=== PATIENT | male | born 1995 | race Caucasian/White ===

== ENCOUNTER 2017-02-06 13:58 | Emergency (ER) | payer OTHER ==
[2017-02-06 14:04] VITALS: BP 133/73
--- NOTE | 2017-02-06 14:43 | EDM.PDOC ---
ED HPI GENERAL MEDICAL PROBLEM - General Chief Complaint: Lower Extremity Injury/Pain Stated Complaint: right foot Time Seen by Provider: 02/06/17 14:20 Source of Information: Reports: Patient History Limitations: Reports: No Limitations - History of Present Illness INITIAL COMMENTS - FREE TEXT/NARRATIVE: Patient is a 22-year-old who apparently was out and about yesterday when he kicked something at that time he did not have any pain but now complains some pain in the dorsal aspect of the right foot patient was unable to come in earlier because of pain did take a couple Aleve's which helped him now cave-in for evaluation and treatment Onset: Today Onset Date: 02/06/17 Duration: Hour(s): Location: Reports: Lower Extremity, Right (Right dorsal aspect of foot laterally ) Treatments RESPIRATORY EQUIPMENT ASSISTANT: Reports: Cold Therapy Right Feet Pain Score (Numeric/FACES): 9 - Related Data Allergies Allergy/AdvReac Type Severity Reaction Status Date / Time No Known Allergies Allergy Verified 02/06/17 14:04 Home Meds: Home Meds . [No Known Home Meds] 01/04/16 [History] Past Medical History - Infectious Disease History Infectious Disease History: Reports: Chicken Pox - Past Surgical History HEENT Surgical History: Reports: Other (See Below) Other HEENT Surgeries/Procedures: Eye surgery GI Surgical History: Reports: Appendectomy Social & Family History - Tobacco Use Smoking Status *Q: Current Every Day Smoker Years of Tobacco use: 4 Packs/Tins Daily: 0.5 - Alcohol Use Days Per Week of Alcohol Use: 1 Number of Drinks Per Day: 6 Total Drinks Per Week: 6 - Recreational Drug Use Recreational Drug Use: No Review of Systems - Review of Systems Review Of Systems: See Below Constitutional: Reports: No Symptoms Eyes: Reports: No Symptoms Ears: Reports: No Symptoms Nose: Reports: No Symptoms Mouth/Throat: Reports: No Symptoms Respiratory: Reports: No Symptoms Cardiovascular: Reports: No Symptoms GI/Abdominal: Reports: No Symptoms Genitourinary: Reports: No Symptoms Musculoskeletal: Reports: Foot Pain Skin: Reports: No Symptoms Neurological: Reports: No Symptoms Psychiatric: Reports: No Symptoms ED EXAM, GENERAL - Physical Exam Exam: See Below Exam Limited By: No Limitations General Appearance: Alert, WD/WN, No Apparent Distress Ears: Normal External Exam, Normal Canal, Hearing Grossly Normal, Normal TMs Nose: Normal Inspection, Normal Mucosa, No Blood Throat/Mouth: Normal Inspection Head: Atraumatic, Normocephalic Neck: Normal Inspection, Supple, Non-Tender, Full Range of Motion Respiratory/Chest: No Respiratory Distress, Lungs Clear, Normal Breath Sounds, No Accessory Muscle Use, Chest Non-Tender Cardiovascular: Normal Peripheral Pulses, Regular Rate, Rhythm, No Edema, No Gallop, No JVD, No Murmur, No Rub GI/Abdominal: Normal Bowel Sounds, Soft, Non-Tender, No Organomegaly, No Distention, No Abnormal Bruit, No Mass (Male) Exam: No Hernia, Normal Inspection, Normal Prostate, Circumcised Rectal (Males) Exam: Deferred Back Exam: Normal Inspection, Full Range of Motion, NT Extremities: Leg Pain (Right leg pain dorsal aspect limited range of motion) Neurological: Alert Course - Vital Signs Last Recorded V/S: Last Vital Signs Temp 98.7 F 02/06/17 13:59 Pulse 100 02/06/17 13:59 Resp 20 02/06/17 13:59 BP 133/73 02/06/17 13:59 Pulse Ox 100 02/06/17 13:59 - Orders/Labs/Meds Orders: Active Orders 24 hr Category Date Time Status Foot 2V Rt [CR] Stat Exams 02/06/17 14:09 Taken Departure - Departure Time of Disposition: 14:48 Disposition: Home, Self-Care 01 Condition: Fair Clinical Impression: Right foot sprain Clinical Impression: (Ruled Out): Closed nondisplaced fracture of fourth metatarsal bone of right foot - Discharge Information Instructions: Foot Sprain Forms: ED Department Discharge - My Orders Last 24 Hours: My Active Orders 02/06/17 14:09 Foot 2V Rt [CR] Stat - Assessment/Plan Last 24 Hours: My Active Orders 02/06/17 14:09 Foot 2V Rt [CR] Stat
== END 2017-02-06 15:09 | disposition home or self-care (01) ==
LOC: LL.ED 13:58
DX: S93.601A Unspecified sprain of right foot, initial encounter (principal); Z90.49 Acquired absence of other specified parts of digestive tract; F17.210 Nicotine dependence, cigarettes, uncomplicated; W22.8XXA Striking against or struck by other objects, initial encounter
CPT/HCPCS: 73620-RT; 99283

== ENCOUNTER 2018-10-25 18:36 | Emergency (ER) | payer SELFPAY ==
[2018-10-25 18:51] VITALS: BP 122/62
[2018-10-25] MEDS: Diphtheria,Pertussis(Acell),Tetanus Vaccine 0.5 ML SDV IM ONE (19:13)
[2018-10-25] MEDS: Bacitracin/Neomycin/Polymyxin B Oint 0.9 GM U/D Packet TOP ONE (19:25)
--- NOTE | 2018-10-25 19:30 | EDM.PDOC ---
ED HPI GENERAL MEDICAL PROBLEM - General Chief Complaint: Laceration Stated Complaint: Cut on top of hand Time Seen by Provider: 10/25/18 19:02 Source of Information: Reports: Patient History Limitations: Reports: No Limitations - History of Present Illness INITIAL COMMENTS - FREE TEXT/NARRATIVE: Presents to ER with laceration on dorsal aspect of right hand that was sustained when he was reaching for his phone that fell between his car seat and the center console of the car. No numbness/tingling of hand. No tendon dysfunction noted. Tetanus last updated over 10 years ago. No other complaints. Bleeding well controlled at time of presentation. - Related Data Allergies Allergy/AdvReac Type Severity Reaction Status Date / Time No Known Allergies Allergy Verified 02/06/17 14:04 Home Meds: Home Meds . [No Known Home Meds] 01/04/16 [History] Past Medical History - Infectious Disease History Infectious Disease History: Reports: Chicken Pox - Past Surgical History HEENT Surgical History: Reports: Other (See Below) Other HEENT Surgeries/Procedures: Eye surgery GI Surgical History: Reports: Appendectomy ED ROS GENERAL - Review of Systems Review Of Systems: ROS reveals no pertinent complaints other than HPI. ED EXAM, SKIN/RASH Exam: See Below Exam Limited By: No Limitations General Appearance: Alert, WD/WN, Anxious Eye Exam: Bilateral Eye: EOMI Head: Atraumatic, Normocephalic Neck: Supple Respiratory/Chest: No Respiratory Distress Extremities: Normal Range of Motion, Normal Capillary Refill Neurological: Alert, Oriented, Normal Cognition, Normal Gait, No Motor/Sensory Deficits Psychiatric: Normal Affect, Normal Mood Skin: Warm, Dry, Other (linear laceration and small area of skin avulsion just distal to laceration noted on dorsal aspect of right hand. Laceration appears superficial and does not appear to involve deeper structures. Tendon function is intact. No active bleeding noted. ) ED SKIN PROCEDURES - Laceration/Wound Repair Right Dorsal Hand Lac/Wound length In cm: 1.5 (total length of laceration plus area of skin avulsion is 2cm) Appearance: Subcutaneous, Clean Distal NVT: Neuro & Vascular Intact, No Tendon Injury Anesthetic Type: Local Local Anesthesia - Lidocaine (Xylocaine): 1% Plain Local Anesthetic Volume: 2cc Skin Prep: Chlorhexidine (Hibiciens) Exploration/Debridement/Repair: Wound Explored, In a Bloodless Field, Explored to Base Closed with: Sutures Suture Size: 4-0 # of Sutures: 3 Suture Type: Nylon, Interrupted Sterile Dressing Applied: Nurse Tetanus Status Addressed: Yes Complications: No Course - Vital Signs Last Recorded V/S: Last Vital Signs Temp 36.8 C 10/25/18 18:40 Pulse 83 10/25/18 18:40 Resp 15 10/25/18 18:40 BP 122/62 10/25/18 18:40 Pulse Ox 98 10/25/18 18:40 - Orders/Labs/Meds Orders: Active Orders 24 hr Category Date Time Status Vaccines to be Administered [RC] PER UNIT ROUTINE Care 10/25/18 19:06 Ordered Meds: Medications Discontinued Medications Generic Name Dose Route Start Last Admin Trade Name Freq PRN Reason Stop Dose Admin Diphtheria/Tetanus/Acell Pertussis 0.5 ml 10/25/18 19:06 10/25/18 19:13 Adacel IM 10/25/18 19:07 0.5 ml .ONCE ONE Administration Lidocaine HCl 5 ml 10/25/18 19:06 10/25/18 19:13 Xylocaine-Mpf 1% INJECT 10/25/18 19:07 5 ml ONETIME ONE Administration Neomycin/Polymyxin/Bacitracin Confirm 10/25/18 19:17 Triple Antibiotic Oint Administered 10/25/18 19:18 Dose 1 each .ROUTE .STK-MED ONE - Re-Assessments/Exams Free Text/Narrative Re-Assessment/Exam: 10/25/18 19:27 Laceration repaired. Tetanus updated. Dressing applied. Work release for [employer] given to patient. Wound care discussed. Sutures out in 7 days. Departure - Departure Time of Disposition: 19:28 Disposition: Home, Self-Care 01 Condition: Good Clinical Impression: Laceration of hand, right Qualifiers: Encounter type: initial encounter Foreign body presence: without foreign body Qualified Code(s): S61.411A - Laceration without foreign body of right hand, initial encounter - Discharge Information *PRESCRIPTION DRUG MONITORING PROGRAM REVIEWED*: Not Applicable *COPY OF PRESCRIPTION DRUG MONITORING REPORT IN PATIENT CHERELLE: Not Applicable Instructions: Stitches, [place], or Adhesive Wound Closure, [id number] Referrals: Marcelo Garcia MD [Primary Care Provider] - Forms: ED Department Discharge Additional Instructions: Sutures out in 7 days. They will take them out for free at our hospital clinic. Return for recheck if you have any concerns, such as signs of infection. - My Orders Last 24 Hours: My Active Orders 10/25/18 19:06 Vaccines to be Administered [RC] PER UNIT ROUTINE - Assessment/Plan Last 24 Hours: My Active Orders 10/25/18 19:06 Vaccines to be Administered [RC] PER UNIT ROUTINE
[2018-10-25] MEDS: Bacitracin/Neomycin/Polymyxin B Oint 0.9 GM U/D Packet ONE (21:16)
== END 2018-10-25 19:41 | disposition home or self-care (01) ==
LOC: LL.ED 18:36
DX: S61.411A Laceration without foreign body of right hand, initial encounter (principal); Z23 Encounter for immunization; W23.1XXA Caught, crushed, jammed, or pinched between stationary objects, initial encounter
CPT/HCPCS: 12001; 90471; 90715; 99282; 99283; J2001